=== PATIENT | male | born 1975 | race Caucasian/White ===

== ENCOUNTER 2019-04-17 12:41 | Observation (INO) ==
[2019-04-17] MEDS ORDERED: ASPIRIN PO ONE (14:04)
--- NOTE | 2019-04-17 14:06 | EKG Report ---
Test Performed on : 04/17/2019 12:48:55 PM Test Reason : cp Blood Pressure : / mmHG Vent. Rate : 093 BPM Atrial Rate : 093 BPM P-R Int : 120 ms QRS Dur : 080 ms QT Int : 354 ms P-R-T Axes : 035 045 029 degrees QTc Int : 440 ms Normal sinus rhythm. Normal ECG No previous ECGs available Unconfirmed Result
[2019-04-17 14:28] LABS: INR 0.9; PROTIME 12.9 Seconds (11.0-16.0)
[2019-04-17 14:29] LABS: PTT 30.2 Seconds (22.3-41.8)
[2019-04-17 14:31] LABS: BASO# 0.03 X1000 (0.0-0.2); BASO% 0.2 % (0.0-0.8); EOS# 0.26 X1000 (0.0-0.7); EOS% 2.2 % (0.0-10.0); HEMATOCRIT 44.8 % (42.0-52.0); IMM GRAN# 0.04 X1000 (0.0-0.04); IMM GRAN% 0.3 % (0.0-0.5); LYMPH# 4.31 X1000 (1.2-3.4); LYMPH% 35.7 % (20.5-51.1); MCH 31.5 PG (27-31); MCHC 35.7 g/dL (33-37); MCV 88.2 FL (81-99); MONO# 0.47 X1000 (0.11-0.59); MONO% 3.9 % (1.7-9.3); MPV 9.7 FL (7.4-10.4); NEUT# 6.95 X1000 (1.4-6.5); NEUT% 57.7 % (42.2-75.2); PLT 300 X1000 (130-400); RBC 5.08 XMIL (4.7-6.1); RDW 13.3 % (11.5-14.5); WBC 12.06 X1000 (4.8-10.8)
[2019-04-17 14:49] LABS: AGAP 12; ALB/GLOB RATIO 1.4; ALBUMIN 4.4 g/dL (3.5-5.0); ALKALINE PHOSPHATASE 105 U/L (32-122); BUN 12 mg/dL (8-22); CALCIUM 9.6 mg/dL (8.8-10.2); CHLORIDE 99 mmol/L (98-107); CK PROFILE 85 U/L (24-204); COSMO 289; CREATININE 0.7 mg/dL (0.7-1.2); ESTIMATED GFR > 60; GLUCOSE 311 mg/dL (70-104); GOT 22 U/L (10-34); GPT 19 U/L (10-44); POTASSIUM 4.5 mmol/L (3.5-5.1); SODIUM 139 mmol/L (136-145); TCO2 28 mmol/L (25-35); TOTAL BILIRUBIN 0.48 mg/dL (0.20-1.00); TOTAL PROTEIN 7.5 g/dL (6.3-8.3)
[2019-04-17] MEDS ORDERED: NICODERM PATCH TD ONE (17:44)
[2019-04-17] MEDS: LOVENOX SUBQ SCH (18:05)
--- NOTE | 2019-04-17 18:15 | HISTORY AND PHYSICAL ---
HISTORY OF PRESENT ILLNESS: Mr. Diehl stated that he was doing fine until today. He noticed at work, he works in construction, he was hurting, a sharp pain in the left side of his chest and concerned because it would radiate some to his left arm. No radiation to the jaw. No shortness of breath. No diaphoresis. No pressure pain. No recent trauma that he knows or different activity with his left shoulder. I could not reproduce the pain on exam or palpation of his left axillary or pectoralis, but that is where he is hurting. He did not really give me a clear pleuritic component, was just kind of a pain that would come and go today and it bothered him and worried him. His father has a history of coronary artery disease. He does smoke half a pack to a full pack a day. He does have a history of hypercholesterolemia and diabetes. PAST MEDICAL HISTORY: 1. Diabetes mellitus type 2. 2. Hypercholesterolemia. 3. He has been bitten in the left elbow by a brown recluse spider and had to have just resection there of the skin on the left lateral elbow. I think he also had bacteremia secondary to that. He also had surgery on his back, L4, L5. I think it was a disk ALLERGIES: His only allergy is morphine. FAMILY HISTORY: Other than his father with coronary artery disease, no other known medical history he is aware of. He does not drink any alcohol. He works construction. REVIEW OF SYSTEMS: General: No weight gain or loss. No fever or chills. HEENT: Unremarkable. Respiratory: No increased work of breathing or dyspnea. Cardiovascular: No chest pain or tachy palpitation. Gastrointestinal/Genitourinary: Unremarkable. Musculoskeletal: Neurologic no significant complaints. Endocrinologic/Hematologic: No significant history. PHYSICAL EXAMINATION: VITAL SIGNS: Temp is 97.8, pulse 89, respirations 18, blood pressure 135/85. HEENT: Pupils are equal and round. LUNGS: Lungs are clear in all lung rosario, anterior, lateral and posterior. CVP less than 6 cm. No cervical supraclavicular axillary or femoral adenopathy. CARDIOVASCULAR: Regular rhythm rate. ABDOMEN: Soft. SKIN: Warm and dry. No sign of nasal mucosa lesions. LABORATORY DATA: White count 12,060, hematocrit 44, platelet count 300,000. Sodium 139, potassium 4.5, chloride 99, BUN 12, creatinine 0.7, calcium 9.6. AST is 22, ALT is 19, alkaline phosphatase is 105. Prothrombin time is 12.9, INR 0.9, PTT is 30. Albumin 4.4. Chest x-ray clear no sign of infiltrate. Mediastinal silhouette is unremarkable. ASSESSMENT AND PLAN: 1. Atypical chest pain. Really does not sound like an angina equivalent, but we will check serial cardiac enzymes. We will plan on him getting a [employer] GXT in the morning and if that is negative, he can probably go home. I suspect this is musculoskeletal pain. 2. Diabetes mellitus type 2. Will follow sugars while here. We will check a hemoglobin A1c and we will check his lipid profile. We will check a T4 and TSH, B12 and folate in the morning. 3. History of hypertension. Blood pressures look good. We will follow those. His home medications have not been reviewed yet, probably continue those. cc: Nura Stallings MD
--- NOTE | 2019-04-17 18:18 | PROVIDER DOCUMENTATION ---
This chart was entered by Kira Manjarrez Scribe, acting as scribe for Clemencia Carolina MD. HPI-Chest Pain - General Chief Complaint: Chest Pain Stated Complaint: CP Time Seen by Provider: 04/17/19 14:46 Source: patient Allergies/Adverse Reactions: Patient Allergies Allergy/AdvReac Type Severity Reaction Status Date / Time morphine AdvReac NAUSEA/VOMI Verified 04/17/19 14:17 TING Home Medications: Home Medication List Medication Instructions Recorded Confirmed Last Taken Type Gabapentin 400 mg PO TID 04/17/19 04/17/19 04/17/19 08:00 History Insulin Detemir [Levemir] 20 unit SQ QHS 04/17/19 04/17/19 1 Day Ago History ~04/16/19 Meloxicam [Mobic] 15 mg PO DAILY 04/17/19 04/17/19 04/17/19 08:00 History Metformin E.r. [Glucophage Xr] 500 mg PO BID CC 04/17/19 04/17/19 04/17/19 08:00 History Methadone [Methadone Liquid] 90 mg PO DAILY 04/17/19 04/17/19 04/17/19 08:00 History - History of Present Illness-CP Nature of Presenting Problem: Patient is a 43 year old male who presents with left side chest pain that stared at 1100. Patient states chest pain was present for 15 minutes then resolved. Denies shortness of breath, dizziness, nausea, vomiting and diaphoresis. Location: reports: other (left side) Chest Pain Radiation: reports: arms (left) Quality of Pain: reports: tightness Severity in ED: moderate Onset/Duration: this afternoon (1100 lasted for around 10-15 minutes) Timing: gone now Context/Activities at Onset: reports: light activity Modifying Factors: improves with: nothing Associated Symptoms: reports: denies symptoms Nitro Today/Relief: no nitro taken today Aspirin Treatment Today: no aspirin today Review of Systems - Adult - REVIEW OF SYSTEMS - ADULT Constitutional: reports: no symptoms reported Eyes: reports: no symptoms reported Ears, Nose, Mouth & Throat: reports: no symptoms reported Cardiovascular: reports: no symptoms reported. denies: chest pain, irregular heart rate, palpitations Respiratory: reports: no symptoms reported. denies: cough, shortness of breath, wheezing Gastrointestinal: reports: no symptoms reported. denies: abdominal pain, nausea, vomiting Genitourinary: reports: no symptoms reported Musculoskeletal: reports: no symptoms reported Integumentary: reports: no symptoms reported Neurological: reports: no symptoms reported. denies: dizziness/vertigo, h eadache/migraines, syncope Allergic/Immunologic: reports: no symptoms reported Past History - Adult - PAST MEDICAL HISTORY-ADULT Review of Records: reports: Old Records Reviewed, Nursing Assessment Review, Medications Reviewed, Social history reviewed & non-contributory. Major Childhood Illnesses: reports: denies history Cardiovascular: reports: HTN Respiratory: reports: denies history Gastrointestinal: reports: denies history Obstetrical/Gynecological: reports: denies history Genitourinary: reports: denies history Musculoskeletal: reports: denies history Neurological: reports: denies history Psychiatric: reports: denies history Endocrine/Immune: reports: Diabetes Other Conditions: reports: denies history - PRIOR SURGERIES/PROCEDURES Surgical/Procedure History: reports: reviewed, not pertinent - IMMUNIZATION STATUS Childhood Immunizations: See Nurse Assessment Flu Vaccine: See Nurse Assessment - FAMILY HISTORY Family History: CAD under 55yo - SOCIAL HISTORY Smoking: cigarettes, greater than 1 pack/day Provider spent 3-5 mins advising pt. on dangers of tobacco.: Discussed manners to quit use, and f/u contacts for add'l counseling. Substance Use: denies Physical Exam-General - PHYSICAL EXAM-ADULT Initial Vital Signs Reviewed: Yes - CONSTITUTIONAL General Appearance: alert, no apparent distress. negative: lethargic, slow to respond - HEAD, EARS, NOSE, MOUTH & THROAT HENMT: moist mucous membranes, normal ENT inspection. negative: angioedema, hearing deficit - RESPIRATORY Respiratory: chest non-tender, lungs clear, normal breath sounds - CARDIOVASCULAR Cardiovascular: normal peripheral pulses, regular rate, rhythm, no edema. negative: tachycardia, systolic murmur - GASTROINTESTINAL (ABDOMEN) Abdominal Exam: normal bowel sounds, non tender, soft. negative: guarding, rebound - NEUROLOGIC Neurologic: grossly normal, no motor/sensory deficits. negative: aphasia, facial droop - PSYCHIATRIC Psych/Mental Status: normal mood/affect, oriented x 3. negative: anxious - HEART Score HEART Score: History: Moderately Suspicious HEART Score: ECG: Normal HEART Score: Age: < or = 45 Years HEART Score: Risk Factors for Atherosclerotic Disease: > or = 3 Risk Factors or History of Atherosclerotic Disease HEART Score: Troponin: < or = Normal Limit Total HEART Score:: 3 Progress - PLAN OF CARE/RESULTS Progress/Plan/Lab Results: Vital Signs - 8 hr 04/17/19 12:48 04/17/19 14:14 04/17/19 14:51 Temperature 98.3 F 97.8 F Pulse Rate 89 90 Respiratory Rate 20 18 Blood Pressure 137/85 132/85 O2 Sat by Pulse Oximetry 96 98 96 04/17/19 14:52 04/17/19 15:00 04/17/19 15:02 Temperature Pulse Rate Respiratory Rate Blood Pressure 155/96 152/91 O2 Sat by Pulse Oximetry 95 98 98 04/17/19 15:20 04/17/19 15:31 04/17/19 15:40 Temperature Pulse Rate Respiratory Rate Blood Pressure 143/95 O2 Sat by Pulse Oximetry 95 95 95 04/17/19 15:50 04/17/19 16:00 04/17/19 16:01 Temperature Pulse Rate 89 Respiratory Rate 18 Blood Pressure 135/87 O2 Sat by Pulse Oximetry 96 96 97 04/17/19 16:32 04/17/19 17:01 04/17/19 17:32 Temperature Pulse Rate 88 65 72 Respiratory Rate 19 19 18 Blood Pressure 108/84 135/73 148/94 O2 Sat by Pulse Oximetry 97 95 99 04/17/19 18:01 Temperature Pulse Rate 78 Respiratory Rate 18 Blood Pressure 146/90 O2 Sat by Pulse Oximetry 97 Laboratory Results - last 24 hr 04/17/19 04/17/19 04/17/19 13:17 13:17 13:17 WBC 12.06 H RBC 5.08 Hgb 16.0 Hct 44.8 MCV 88.2 MCH 31.5 H MCHC 35.7 RDW Std Deviation 13.3 Plt Count 300 MPV 9.7 Immature Gran % (Auto) 0.3 Neut % (Auto) 57.7 Lymph % (Auto) 35.7 [place] % (Auto) 3.9 Eos % (Auto) 2.2 Baso % (Auto) 0.2 Immature Gran # (Auto) 0.04 Neut # (Auto) 6.95 H Lymph # (Auto) 4.31 H [place] # (Auto) 0.47 Eos # (Auto) 0.26 Baso # (Auto) 0.03 PT INR PTT (Actin FS) Sodium 139 Potassium 4.5 Chloride 99 Carbon Dioxide 28 Anion Gap 12 BUN 12 Creatinine 0.7 Estimated GFR/1.73 m2 > 60 BUN/Creatinine Ratio 17 Glucose 311 H Calculated Osmolality 289 Calcium 9.6 Total Bilirubin 0.48 AST 22 ALT 19 Alkaline Phosphatase 105 Creatine Kinase 85 Troponin T [id number] Pept 17 Total Protein 7.5 Albumin 4.4 Globulin 3.1 Albumin/Globulin Ratio 1.4 04/17/19 04/17/19 04/17/19 13:17 13:17 15:33 WBC RBC Hgb Hct MCV MCH MCHC RDW Std Deviation Plt Count MPV Immature Gran % (Auto) Neut % (Auto) Lymph % (Auto) [place] % (Auto) Eos % (Auto) Baso % (Auto) Immature Gran # (Auto) Neut # (Auto) Lymph # (Auto) [place] # (Auto) Eos # (Auto) Baso # (Auto) PT 12.9 INR 0.90 PTT (Actin FS) 30.2 Sodium Potassium Chloride Carbon Dioxide Anion Gap BUN Creatinine Estimated GFR/1.73 m2 BUN/Creatinine Ratio Glucose Calculated Osmolality Calcium Total Bilirubin AST ALT Alkaline Phosphatase Creatine Kinase Troponin T < 0.010 < 0.010 Odr-V-Cxqsltnegea Pept Total Protein Albumin Globulin Albumin/Globulin Ratio Orders Category Date Time Status Admit - [facility] Routine AdmDCTranf 04/17/19 17:07 Active Activity - Up with Assistance ORDERED Care 04/17/19 17:07 Active Cardiac Monitoring DIRECTED Care 04/17/19 15:00 Active FSBS/Accucheck Result AC + HS Care 04/17/19 17:13 Active If abnormal EKG, order: NOW Care 04/17/19 12:59 Active Intake and Output-Strict ORDERED Care 04/17/19 17:07 Active Update & Confirm Home Medicati ROUTINE Care 04/17/19 17:17 Active Vital Signs Order Q 8-HR ASSESS Care 04/17/19 17:07 Active Z-Document. for Tele Applied ORDERED Care 04/17/19 17:08 Active Diabetic Diet Diet 04/17/19 17:18 Active NPO Diet 04/17/19 17:15 Completed CHEST-2 VIEWS [RAD] Stat Exams 04/17/19 12:59 Taken MYOCARDIAL PERF SCAN, STR/REST [NM] Routine Exams 04/18/19 08:00 Ordered BASIC METABOLIC PANEL [CHEM] Routine Lab 04/18/19 06:00 Uncollected CBC WITH DIFF [HEME] Routine Lab 04/18/19 06:00 Uncollected CBC WITH ELECTRONIC DIFF [HEME] Stat Lab 04/17/19 13:17 Completed CK PROFILE [SP CHEM] Stat Lab 04/17/19 13:17 Completed CK PROFILE [SP CHEM] Timed Lab 04/17/19 22:00 Ordered COMPREHENSIVE METABOLIC PANEL [CHEM] Stat Lab 04/17/19 13:17 Completed PRO B-NATRIURETIC PEPTIDE Stat Lab 04/17/19 13:17 Completed PROTIME WITH INR [COAG] Stat Lab 04/17/19 13:17 Completed PTT [COAG] Stat Lab 04/17/19 13:17 Completed TROPONIN T Stat Lab 04/17/19 13:17 Completed TROPONIN T Stat Lab 04/17/19 15:33 Completed TROPONIN T Timed Lab 04/17/19 22:00 Ordered Aspirin Med 04/17/19 14:04 Discontinued 325 mg PO NOW ONE Enoxaparin [Lovenox] Med 04/17/19 18:00 Active 40 mg SUBQ Q24H Insulin Lispro [Humalog] Med 04/17/19 21:00 Active See Protocol SUBQ 0700,1100,1600,2100 Nicotine Patch [Nicoderm Patch] Med 04/17/19 17:44 Discontinued 21 mg TD NOW ONE Omeprazole [Prilosec] Med 04/18/19 09:00 Active 40 mg PO DAILY CP/Palp <45 No Known Cardiac Hx Stat Oth 04/17/19 12:58 Ordered CP/SOB/Palp >45 yrs of Age Stat Oth 04/17/19 14:04 Ordered Telemetry [OM.EQ] Routine Oth 04/17/19 17:07 Active EKG [EKG] Stat Ther 04/17/19 12:59 Draft EKG [EKG] Stat Ther 04/17/19 17:15 Ordered Result Diagrams: 04/17/19 13:17 04/17/19 13:17 - EKG 1 Time of EKG reading by physician:: 12:48 EKG Read and Signed by:: Mounika Kim EKG Interpretation (*Must complete 3 of following elements*): Normal Rate: 93 Rhythm: normal sinus rhythm Willis: normal QRS: normal [place] Interval: normal ST Wave: normal Comments: normal ECG - CONSULTS/PCP/HOSPITALIST Notification #1 *Consult/PCP/Hospitalist*: RELIGIOUS STUDIES PROFESSOR Kristin admitting for Dr. Chandrakant Lunsford Disposition: Admit (Hx, PE and pt care discussed, accpeted.) Departure - Departure Date of Disposition Decision: 04/17/19 Time of Disposition Decision: 15:42 DIAGNOSIS: Chest pain Qualifiers: Chest pain type: unspecified Qualified Code(s): R07.9 - Chest pain, unspecified Disposition: ADMITTED INPATIENT 09 Certified Medical Emergency: Emergent Condition: Stable Referrals and Follow-Ups: None,PCP [Primary Care Provider] - - Critical Care Note This patient required my direct & personal management of CC.: No Attestation - Physician/ SUSAN Attestation Patient care was provided by Advanced Practice Provider:: No The physician spent face to face time with patient:: Yes Advanced Practice Provider documentation review:: Supervising physician onsite and consulted in the evaluation and care of this patient. The physician did have a face to face encounter with the patient. This chart was documented by the indicated scribe, (Kira Manjarrez Scribe) and accurately reflects the services I performed and decisions made by me, Clemencia Carolina MD, as attested by the provider's signature.
[2019-04-17] MEDS: HUMALOG SUBQ SCH (22:27)
[2019-04-18 06:11] LABS: BASO# 0.03 X1000 (0.0-0.2); BASO% 0.3 % (0.0-0.8); EOS# 0.29 X1000 (0.0-0.7); EOS% 3.3 % (0.0-10.0); HEMATOCRIT 44.3 % (42.0-52.0); HEMOGLOBIN 15.7 g/dL (14.0-18.0); IMM GRAN# 0.03 X1000 (0.0-0.04); IMM GRAN% 0.3 % (0.0-0.5); LYMPH# 3.93 X1000 (1.2-3.4); LYMPH% 44.1 % (20.5-51.1); MCH 31.2 PG (27-31); MCHC 35.4 g/dL (33-37); MCV 88.1 FL (81-99); MONO# 0.47 X1000 (0.11-0.59); MONO% 5.3 % (1.7-9.3); MPV 9.4 FL (7.4-10.4); NEUT# 4.17 X1000 (1.4-6.5); NEUT% 46.7 % (42.2-75.2); PLT 247 X1000 (130-400); RBC 5.03 XMIL (4.7-6.1); WBC 8.92 X1000 (4.8-10.8)
[2019-04-18 06:31] LABS: AGAP 9; BUN 11 mg/dL (8-22); CALCIUM 8.8 mg/dL (8.8-10.2); CHLORIDE 102 mmol/L (98-107); COSMO 286; CREATININE 0.7 mg/dL (0.7-1.2); ESTIMATED GFR > 60; GLUCOSE 198 mg/dL (70-104); POTASSIUM 4.2 mmol/L (3.5-5.1); SODIUM 141 mmol/L (136-145); TCO2 30 mmol/L (25-35)
[2019-04-18] MEDS: HUMALOG SUBQ SCH ×3 (06:40→12:12)
[2019-04-18] MEDS: PRILOSEC PO SCH ×2 (10:18→10:22)
--- NOTE | 2019-04-18 12:22 | Diag Imaging Result Document ---
PROCEDURE NAME: MYOCARDIAL PERF SCAN, STR/REST - 04/18/2019 MYOCARDIAL PROFUSION SCAN RESULT: INDICATION: Chest pain, diabetes, hypertension. PROCEDURES PERFORMED: 1. Jigar protocol stress. 2. One-day stress/rest myocardial perfusion imaging. PROCEDURE IN DETAIL: Mr. Diehl was brought to the nuclear laboratory and had a resting study with injection of 15.2 mCi of technetium-99m sestamibi with the usual imaging protocol utilized. He subsequently was brought back and had a Jigar protocol stress and at peak stress, was injected with 46.2 mCi of technetium-99m sestamibi with the usual imaging protocol utilized. FINDINGS: JIGAR PROTOCOL STRESS RESULTS: 1. Baseline EKG shows sinus rhythm. 2. Patient exercised for a total of 8 minutes 57 seconds, achieving peak heart rate of 153 which was 86% of age-predicted maximum. He achieved 10 METS and stage 3 of the Jigar protocol. Exercise capacity was only 90% of age- and sex-predicted exercise capacity. 3. Appropriate blood pressure response to exercise. 4. Test was terminated due to fatigue. 5. No anginal complaints occurred during the course of the study. 6. No clear evidence of ischemic-related EKG changes or significant arrhythmias. Occasional bigeminal PVCs were identified. PERFUSION IMAGING RESULTS: 1. No evidence of abnormal extracardiac uptake. 2. TID ratio is 0.97. 3. Perfusion imaging demonstrates 2 separate defects. The initial was a moderate-sized mild intensity reversible defect in the inferior mid, basal inferior, and portions of the inferoseptal and inferior lateral. Again, this suggest some reversibility suggesting possible ischemia. The second defect is a small-sized mild intensity reversible defect in the basal anterior wall. This could suggest a small amount of ischemia as well. 4. Normal ejection fraction of 88%. The end-diastolic volume is 87, end systolic volume 11. Normal wall motion. cc: MD Nida Ramirez CRNP
[2019-04-18] MEDS: HUMULIN R SUBQ SCH ×2 (16:08→21:56)
[2019-04-18] MEDS: NICODERM PATCH TD SCH (16:14)
--- NOTE | 2019-04-18 16:28 | CARDIOLOGY CONSULTATION ---
DATE: 04/18/2019 REASON FOR CONSULTATION: Cardiology was consulted for chest pain, abnormal stress test. 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 Has history of diabetes, hyperlipidemia. Has followed up at the [facility] in [place]. Had episodes of sharp left-sided chest pain. Subsequently, he had pressure-like sensation radiating to his neck and down his left arm. Symptoms were intermittent, lasted for about an hour. He decided to come to the emergency room, was admitted. Electrocardiogram revealed normal sinus rhythm. Cardiac enzyme was negative. Patient was set up for a stress test today. At the time of my examination, patient was pain free. This is the first time he had similar episodes of chest pain. There is no associated diaphoresis or shortness of breath. REVIEW OF SYSTEM: A 14-point review of systems was done. GI System: There is no history of nausea, vomiting, diarrhea. There is no history of hematemesis or melena. Central nervous system: No focal weakness to suggest a CVA or TIA. Genitourinary System: There is no dysuria or hematuria. PAST MEDICAL HISTORY: Diabetes, hypercholesterolemia. PAST SURGICAL HISTORY: Back surgery L4-L5 in the past. ALLERGIES: He is allergic to morphine. FAMILY HISTORY: Patient's father had coronary artery disease and stents when he was less than 60. PATIENT'S MEDICATIONS AT HOME: Include gabapentin 400 mg p.o. t.i.d., Levemir insulin 20 units subcutaneous at bedtime, metformin 500 b.i.d., methadone as required, meloxicam. PHYSICAL EXAMINATION: Vital Signs: Blood pressure was 135/85 Cardiovascular System: Normal jugular venous pressure. There was no thyromegaly. No carotid bruit. First and second heart sounds were heard. There was no S3 gallop. Respiratory System: Normal air entry. There are no crepitations or rhonchi. Abdomen: Soft, nontender. There was no guarding or rigidity. Bowel sounds were heard. Central nervous system: Alert and oriented. He was moving all 4 extremities. HEENT: Poor dentition. Pupils were equal and reacting to light. DIAGNOSTIC STUDIES: Laboratory examination revealed sodium 141, potassium 4.2, BUN 11, creatinine 0.7. Troponin was negative. LDL cholesterol 41, triglyceride 78, HDL cholesterol 32. CBC: Hemoglobin was 5.0, WBC 8.9, hemoglobin 15.7, hematocrit 44, platelet count of 247,000. The stress test revealed the patient had mild intensity reversible perfusion defect in the inferior, mid, and inferoseptal and inferolateral region. Low-grade ischemia. However, his GXT was unremarkable. He had exercised for 8 minutes to a peak heart rate of 153. Stress electrocardiogram was negative for ischemia. ASSESSMENT AND PLAN: 1. Mr. Alex Black is a 43-year-old gentleman who is a smoker has family history of coronary artery disease, has diabetes. Comes with complaints of having sharp episodes of left- sided chest discomfort followed by pressure-like sensation radiating to his left arm and to the neck. These symptoms were intermittent. Given his abnormal stress test and past medical history, I have recommended that he undergo a left heart catheterization. Risks, benefits, and alternatives were explained. Patient will be set up for left heart catheterization in the morning. In addition to his insulin, he has been started on aspirin and beta-blockers. We will recommend continuing the medications. 2. Diabetes. Continue with his insulin. 3. He has also has gastroesophageal reflux disease. He is on omeprazole. I have not made any changes. Thank you for the consult. We will follow hospital course. cc: Hansel Faust MD
[2019-04-18] MEDS: LOVENOX SUBQ SCH (17:09)
--- NOTE | 2019-04-18 17:59 | PROGRESS NOTE ---
DATE: 04/18/2019 SUBJECTIVE: The patient is resting comfortably in bed. He denies having any further chest pain since he was admitted yesterday. OBJECTIVE: Vital Signs: Temperature 98.1 degrees, blood pressure 121/48, heart rate 92, respirations 16, O2 saturation 98% on room air. General: This is a middle-aged male sitting in a chair, in no acute distress. Heart: S1, S2 normal. Regular rate and rhythm. Lungs: Equal air entry bilaterally. Abdomen: Positive bowel sounds. Soft, nontender, nondistended. Extremities: No edema, no cyanosis. Neurologic: The patient is alert and oriented x4. LABS: Sodium 141, potassium 4.2, chloride 102, CO2 30, BUN 11, creatinine 0.7, glucose 198, LDL 41, cholesterol 78. ASSESSMENT AND PLAN: 1. Chest pain, with an abnormal stress test. Cardiology has been consulted and they are planning to do a heart catheterization tomorrow. We will continue on aspirin and beta duong therapy. 2. Uncontrolled diabetes mellitus type 2. The patient has been started on sliding scale insulin. He is normally on metformin, which is on hold at this time in anticipation of the catheterization scheduled for tomorrow. 3. Tobacco dependence. The patient has been counseled about smoking cessation. 4. Deep vein thrombosis prophylaxis. Continue on Lovenox. cc: Dolly Parekh MD
[2019-04-18] MEDS ORDERED: LEVEMIR SUBQ ONE (21:32)
[2019-04-18] MEDS: LOPRESSOR PO SCH (21:56)
[2019-04-18] MEDS: INSULIN PEN NEEDLES ONE ×2 (23:00→23:41)
[2019-04-19] MEDS ORDERED: HUMULIN R SUBQ ONE (01:08)
[2019-04-19 06:28] LABS: BASO# 0.03 X1000 (0.0-0.2); BASO% 0.3 % (0.0-0.8); EOS# 0.27 X1000 (0.0-0.7); EOS% 2.9 % (0.0-10.0); HEMATOCRIT 43.3 % (42.0-52.0); HEMOGLOBIN 15.5 g/dL (14.0-18.0); IMM GRAN# 0.03 X1000 (0.0-0.04); IMM GRAN% 0.3 % (0.0-0.5); LYMPH# 3.74 X1000 (1.2-3.4); LYMPH% 40.3 % (20.5-51.1); MCH 31.5 PG (27-31); MCHC 35.8 g/dL (33-37); MONO# 0.47 X1000 (0.11-0.59); MONO% 5.1 % (1.7-9.3); MPV 9.6 FL (7.4-10.4); NEUT# 4.75 X1000 (1.4-6.5); NEUT% 51.1 % (42.2-75.2); PLT 252 X1000 (130-400); RBC 4.92 XMIL (4.7-6.1); WBC 9.29 X1000 (4.8-10.8)
[2019-04-19 07:07] LABS: AGAP 11; BUN 13 mg/dL (8-22); CALCIUM 8.7 mg/dL (8.8-10.2); CHLORIDE 103 mmol/L (98-107); COSMO 288; CREATININE 0.6 mg/dL (0.7-1.2); ESTIMATED GFR > 60; GLUCOSE 243 mg/dL (70-104); POTASSIUM 3.9 mmol/L (3.5-5.1); SODIUM 140 mmol/L (136-145); TCO2 26 mmol/L (25-35)
[2019-04-19] MEDS: HUMULIN R SUBQ SCH ×3 (07:36→16:30)
[2019-04-19] MEDS: PRILOSEC PO SCH ×2 (08:29→13:44)
--- NOTE | 2019-04-19 08:53 | Diag Imaging Result Doc PS360 ---
EXAM: CHEST-2 VIEWS 04/17/2019 HISTORY: cp TECHNIQUE: PA and lateral chest COMMENT: There is no evidence of acute cardiac or pulmonary disease. There are no previous studies. IMPRESSION: No evidence of acute disease. Electronically signed by Wilber Arreaga 04/19/2019 8:51 AM
[2019-04-19] MEDS ORDERED: ASPIRIN EC PO SCH (09:00)
[2019-04-19] MEDS ORDERED: HEPARIN 1000 UNITS/NS 2,000 UNIT/1,000 ML IV.SOLN ONE (09:11)
[2019-04-19] MEDS ORDERED: VERSED ONE (09:51)
[2019-04-19] MEDS ORDERED: NS 1,000 ML ONE (09:51)
[2019-04-19] MEDS ORDERED: ANESTHESIA PB SET 88 IN 5742 ONE (09:51)
[2019-04-19] MEDS ORDERED: CLAVE TWINSITE 32 IN 11959 ONE (09:51)
[2019-04-19] MEDS ORDERED: BENADRYL ONE (10:13)
--- NOTE | 2019-04-19 11:55 | EKG Report ---
Test Performed on : 04/19/2019 11:48:07 AM Test Reason : Post cath protocol Blood Pressure : / mmHG Vent. Rate : 064 BPM Atrial Rate : 064 BPM P-R Int : 132 ms QRS Dur : 080 ms QT Int : 424 ms P-R-T Axes : 023 062 034 degrees QTc Int : 437 ms Normal sinus rhythm. Normal ECG When compared with ECG of 17-APR-2019 12:48, (Unconfirmed) Nonspecific T wave abnormality no longer evident in Anterior leads Confirmed by Chandrakant BILLS, Nura Patel ([id number]) on 04/20/2019 4:19:05 PM
[2019-04-19] MEDS: NICODERM PATCH TD SCH (13:45)
[2019-04-19] MEDS: LOPRESSOR PO SCH (13:45)
[2019-04-19 15:59] VITALS: BP 126/66
--- NOTE | 2019-04-19 16:22 | PROGRESS NOTE ---
DATE: 04/19/2019 SUBJECTIVE: The patient is resting comfortably in bed. He has no complaints at this time. OBJECTIVE: Vital Signs: Temperature 98.3 degrees, blood pressure 126/66, heart rate 74, respirations 15, O2 saturation 98% on room air. General: This is a middle-aged male lying in bed in no acute distress. Heart: S1, S2. Normal. Regular rate and rhythm. Lungs: Equal air entry bilaterally. No crackles. No rales. Abdomen: Positive bowel sounds. Soft, nontender, nondistended. Extremities: No edema, no cyanosis. Neurologic: The patient is alert and oriented x3. LABS: Reviewed. ASSESSMENT AND PLAN: 1. Abnormal stress test. The patient is scheduled for a left heart catheterization today. Will await the results of this diagnostic study. Continue with the current cardiac medications. 2. Tobacco dependence. The patient has been counseled about smoking cessation. 3. Uncontrolled insulin-dependent diabetes mellitus. Will restart the patient's Levemir. Continue with sliding scale insulin. 4. Hypertension. Continue on the current cardiac medications. cc: Dolly Parekh MD
[2019-04-19] MEDS ORDERED: LEVEMIR SUBQ SCH (21:00)
--- NOTE | 2019-05-01 20:41 | DISCHARGE SUMMARY ---
ADMISSION DATE: 04/17/2019 DISCHARGE DATE: 04/19/2019 FINAL DISCHARGE DIAGNOSES: 1. Abnormal stress test. 2. Mild coronary artery disease. 3. Tobacco dependence. 4. Hypertension. 5. Uncontrolled insulin-dependent diabetes mellitus. CONSULTATIONS: Cardiology consultation with Dr. Faust. PROCEDURES: Left heart catheterization performed on 04/19/2019 that revealed mild coronary artery disease. HOSPITAL COURSE: Mr. Diehl is a 43-year-old male with a history of tobacco dependence, hypertension, and diabetes mellitus who presented to the ER with chest pain. On admission, the patient's initial cardiac enzymes were negative. Serial enzymes were performed that remained negative. The patient was scheduled for a myocardial perfusion scan the following morning. The myocardial perfusion scan was done on 04/18/2019 and it revealed a moderate sized mild intensity reversible defect in the inferior mid, basal, inferior and portions of the inferoseptal and inferolateral simpson suggesting possible ischemia. Cardiology was consulted and the patient was scheduled for heart catheterization for the following morning. The patient underwent a heart catheterization on 04/19/2019 that revealed mild coronary artery disease. Medication management was recommended. The patient was again counseled about the importance of smoking cessation and dietary modifications. The patient was cleared for discharge home on 04/19/2019. DISCHARGE MEDICATIONS: 1. Gabapentin 400 mg oral 3 times a day. 2. Levemir 20 units subcutaneous at bedtime. 3. Metformin 500 mg oral twice a day. 4. Methadone 90 mg p.o. daily. DISCHARGE DIET: 1800 ADA diet. ACTIVITY: As tolerated. FOLLOWUP INSTRUCTIONS: The patient has been advised to follow up with his primary care physician in 1 to 2 weeks. cc: Dolly Parekh MD
--- NOTE | 2019-05-10 13:56 | CARDIAC CATH REPORT ---
PROCEDURE NAME: - PROCEDURE PERFORMED: Left heart catheterization with selective coronary angiography and left ventriculography. ENTRY SITE: Right femoral artery. CATHETERS USED: 5-Czech JL4, 3DRC, and angled pigtail. TECHNIQUE: After intravenous sedation with Versed and Benadryl, local anesthesia with lidocaine was applied over right femoral artery. Arterial access was established with placement of a 5- Czech sheath in the right femoral artery using modified Seldinger technique. Selective coronary angiography was performed followed by left heart catheterization and left ventriculography. Upon completion of procedure, arterial sheath was removed from right femoral artery and hemostasis facilitated with manual pressure. The patient tolerated the procedure without apparent complications. FINDINGS: Hemodynamics: Aortic pressure 111/78, left ventricular pressure 98/80, DP of 11. Comments on hemodynamics: There is no significant gradient across aortic valve demonstrated on pullback from left ventricle. ANGIOGRAPHY: Left ventriculogram: 1. Left ventricle is of normal size without wall motion abnormality evident on DICKEY projection. Estimated left ejection fraction appears to be at least 65%. No regional wall motion abnormality is evident. Appears to be at least 65%. There is no significant mitral regurgitation. 2. Left main coronary artery: The left main coronary artery is free of significant coronary stenosis. 3. Left anterior descending coronary: Left anterior descending coronary gives rise to a medium- size first diagonal branch proximally and a long second diagonal branch at midvessel. The distal left anterior descending coronary artery tapers well before the left ventricular apex. There is no significant stenosis in the left anterior descending coronary artery or its branches. 4. Left circumflex coronary: The left circumflex coronary artery demonstrates a mild (30%) smooth narrowing at the ostium of the obtuse marginal. The remainder of left circumflex coronary and its branches are free of significant coronary stenosis. 5. Right coronary: The dominant right coronary gives rise to a long posterior descending artery. The right coronary artery and its branches are free of significant coronary stenosis. CONCLUSIONS: 1. Normal left ventricular function without wall motion abnormality evident on right anterior oblique projection. 2. Right dominant coronary anatomy as described with mild branch vessel disease involving obtuse marginal. RECOMMENDATIONS: 1. Medical management of patient's coronary atherosclerosis. 2. Continued efforts at coronary risk factor modification. cc: Adria Granados MD
== END 2019-04-19 18:07 | disposition home or self-care (01) ==
LOC: 4N 12:41 → ED 12:41 → SUATTDRO 21:04 → 3S 04-19 11:08
PROVIDERS: ATTEND Internal Medicine
CPT/HCPCS: 71020; 71046; 78452; 80048; 80053; 80061; 82550; 82948; 83721; 83880; 84484; 85025; 85610; 85730; 93005; 93010; 93017; 93458; 96372; 99285; A9270; A9500; J1200; J1644; J1650; J1815; J2250; J7030; Q9967; XXXXX